=== PATIENT | male | born 1965 | race Caucasian/White ===

== ENCOUNTER → 2017-05-22 | Outpatient (CLI) | payer BC ==
[2017-05-22 12:01] LABS: HEMATOCRIT 45.1 % (42.0-52.0); HEMOGLOBIN 15.4 g/dL (13.5-18.0); MEAN PLATELET VOLUME 10.3 fl (7.4-10.4); RED BLOOD COUNT 5.3 M/mm3 (4.20-5.60); RED CELL DISTRIBUTION WIDTH 13.6 % (11.5-14.5); WHITE BLOOD COUNT 3.5 K/mm3 (4.8-10.8)
[2017-05-22 12:14] LABS: ALBUMIN 4.9 g/dL (3.5-5.0); BUN/CREATININE RATIO 15.5 (6.0-26.0); CALCIUM 9.5 mg/dL (8.4-10.2); POTASSIUM 4.5 mmol/L (3.6-5.0); TOTAL BILIRUBIN 1.2 mg/dL (0.2-1.3); TOTAL PROTEIN 8.9 g/dL (6.3-8.2)
== END ==
LOC: LAB 11:48
PROVIDERS: Family Medicine
DX: K74.4 Secondary biliary cirrhosis (principal); E66.9 Obesity, unspecified; I10 Essential (primary) hypertension

== ENCOUNTER → 2017-08-03 | Outpatient (CLI) | payer BC | LOC: LAB 12:08 | DX: E03.9 Hypothyroidism, unspecified (principal) ==

== ENCOUNTER → 2018-01-21 | Outpatient (CLI) | payer BC | LOC: LAB 16:29 | DX: E03.9 Hypothyroidism, unspecified (principal) ==

== ENCOUNTER → 2018-05-06 | Outpatient (CLI) | payer BC ==
[2018-05-06 11:48] LABS: ALBUMIN 4.6 g/dL (3.5-5.0); CALCIUM 9.3 mg/dL (8.4-10.2); TOTAL BILIRUBIN 1.6 mg/dL (0.2-1.3); TOTAL PROTEIN 8.4 g/dL (6.3-8.2)
[2018-05-06 11:49] LABS: HEMATOCRIT 42.1 % (42.0-52.0); HEMOGLOBIN 14.8 g/dL (13.5-18.0); MEAN CELL VOLUME 83 fl (78-100); MEAN CORPUSCULAR HEMOGLOBIN 29 pg (27-31); MEAN CORPUSCULAR HGB CONC 35 g/dL (33-37); MEAN PLATELET VOLUME 10.9 fl (7.4-10.4); PLATELET COUNT 115 K/mm3 (130-400); RED BLOOD COUNT 5.07 M/mm3 (4.20-5.60); RED CELL DISTRIBUTION WIDTH 13.2 % (11.5-14.5); WHITE BLOOD COUNT 4.1 K/mm3 (4.8-10.8)
[2018-05-06 12:41] LABS: LYMPHOCYTE 35 % (20-51); MONOCYTE 10 % (3-10); NEUTROPHILS 51 % (42-75)
== END ==
LOC: LAB 11:10
PROVIDERS: Family Medicine
DX: Z00.00 Encounter for general adult medical examination without abnormal findings (principal); R10.9 Unspecified abdominal pain; E03.9 Hypothyroidism, unspecified

== ENCOUNTER → 2018-05-13 | Outpatient (CLI) | payer BC | LOC: RAD 09:00 | DX: K74.60 Unspecified cirrhosis of liver (principal); K76.6 Portal hypertension; B19.20 Unspecified viral hepatitis C without hepatic coma; Z90.49 Acquired absence of other specified parts of digestive tract | CPT/HCPCS: Q9967 ==

== ENCOUNTER → 2019-01-10 | Outpatient (CLI) | payer BC ==
[2019-01-10 17:19] LABS: ALBUMIN 4.3 g/dL (3.5-5.0); POTASSIUM 3.8 mmol/L (3.5-5.1)
[2019-01-10 17:20] LABS: CALCIUM 9.4 mg/dL (8.3-10.5)
[2019-01-10 17:21] LABS: TOTAL PROTEIN 8.2 g/dL (6.4-8.3)
[2019-01-10 17:23] LABS: TOTAL BILIRUBIN 0.9 mg/dL (0.2-1.2)
[2019-01-10 17:36] LABS: HEMATOCRIT 49.2 % (42.0-52.0); HEMOGLOBIN 16.3 g/dL (13.5-18.0); MEAN CELL VOLUME 84 fl (78-100); MEAN CORPUSCULAR HEMOGLOBIN 28 pg (27-31); MEAN CORPUSCULAR HGB CONC 33 g/dL (33-37); MEAN PLATELET VOLUME 11.9 fl (7.4-10.4); PLATELET COUNT 110 K/mm3 (130-400); RED BLOOD COUNT 5.87 M/mm3 (4.20-5.60); RED CELL DISTRIBUTION WIDTH 14.3 % (11.5-14.5); WHITE BLOOD COUNT 3.8 K/mm3 (4.8-10.8)
[2019-01-10 19:39] LABS: LYMPHOCYTE 36 % (20-51); MONOCYTE 12 % (3-10); NEUTROPHILS 48 % (42-75)
== END ==
LOC: LAB 16:54
PROVIDERS: Family Medicine
DX: I10 Essential (primary) hypertension (principal); K74.4 Secondary biliary cirrhosis; E03.9 Hypothyroidism, unspecified

== ENCOUNTER → 2019-01-16 | Outpatient (CLI) | payer BC | LOC: RAD 07:00 | DX: K76.6 Portal hypertension (principal); K74.4 Secondary biliary cirrhosis; H53.459 Other localized visual field defect, unspecified eye; Z86.19 Personal history of other infectious and parasitic diseases; Z87.19 Personal history of other diseases of the digestive system; Z90.49 Acquired absence of other specified parts of digestive tract | CPT/HCPCS: Q9967 ==

== ENCOUNTER → 2019-02-19 | Outpatient (CLI) | payer BC ==
[2019-02-19 07:27] LABS: POTASSIUM 3.7 mmol/L (3.5-5.1)
[2019-02-19 07:28] LABS: ALBUMIN 4.1 g/dL (3.5-5.0)
[2019-02-19 07:29] LABS: CALCIUM 9.3 mg/dL (8.3-10.5)
[2019-02-19 07:30] LABS: TOTAL PROTEIN 8.1 g/dL (6.4-8.3)
[2019-02-19 07:35] LABS: DIRECT BILIRUBIN 0.4 mg/dL (0.0-0.5)
[2019-02-19 08:19] LABS: PROTHROMBIN TIME 11.6 SECONDS (9.0-12.0)
== END ==
LOC: LAB 06:51
DX: K83.09 Other cholangitis (principal); B18.2 Chronic viral hepatitis C; Z86.73 Personal history of transient ischemic attack (TIA), and cerebral infarction without residual deficits

== ENCOUNTER → 2020-02-17 | Outpatient (CLI) | payer BC | LOC: LAB 11:26 | DX: R05 Cough (principal); R06.02 Shortness of breath; Z20.828 Contact with and (suspected) exposure to other viral communicable diseases ==

== ENCOUNTER → 2020-04-12 | Outpatient (CLI) | payer BC ==
[2020-04-12 17:50] LABS: HEMATOCRIT 29.8 % (42.0-52.0); HEMOGLOBIN 9.1 g/dL (13.5-18.0); MEAN CELL VOLUME 83 fl (78-100); MEAN CORPUSCULAR HEMOGLOBIN 25 pg (27-31); MEAN CORPUSCULAR HGB CONC 31 g/dL (33-37); PLATELET COUNT 111 K/mm3 (130-400); RED BLOOD COUNT 3.58 M/mm3 (4.20-5.60); RED CELL DISTRIBUTION WIDTH 16.6 % (11.5-14.5); WHITE BLOOD COUNT 2.2 K/mm3 (4.8-10.8)
[2020-04-12 17:57] LABS: POTASSIUM 3.6 mmol/L (3.5-5.1)
[2020-04-12 17:58] LABS: ALBUMIN 3.9 g/dL (3.5-5.0)
[2020-04-12 17:59] LABS: CALCIUM 8.6 mg/dL (8.3-10.5)
[2020-04-12 18:02] LABS: TOTAL BILIRUBIN 0.7 mg/dL (0.2-1.2)
[2020-04-12 18:11] LABS: LYMPHOCYTE 25 % (20-51); NEUTROPHILS 60 % (42-75)
[2020-04-12 18:12] LABS: MONOCYTE 14 % (3-10)
== END ==
LOC: LAB 17:32
PROVIDERS: Family Medicine
DX: I85.10 Secondary esophageal varices without bleeding (principal); E78.5 Hyperlipidemia, unspecified; E03.9 Hypothyroidism, unspecified; D64.9 Anemia, unspecified; R73.9 Hyperglycemia, unspecified

== ENCOUNTER → 2020-07-19 | Outpatient (CLI) | payer BC ==
[2020-07-19 11:14] LABS: ALBUMIN 3.7 g/dL (3.5-5.0); POTASSIUM 3.3 mmol/L (3.5-5.1)
[2020-07-19 11:15] LABS: CALCIUM 8.7 mg/dL (8.3-10.5)
[2020-07-19 11:16] LABS: TOTAL PROTEIN 7.7 g/dL (6.4-8.3)
[2020-07-19 11:36] LABS: EOS # 0.1 (0.04-0.40); EOS % 3.5 % (0.0-4.0); HEMATOCRIT 38.1 % (42.0-52.0); HEMOGLOBIN 12.9 g/dL (13.5-18.0); LYMPH# 1.3 (1.50-4.00); MEAN CELL VOLUME 73 fl (78-100); MEAN CORPUSCULAR HEMOGLOBIN 25 pg (27-31); MEAN CORPUSCULAR HGB CONC 34 g/dL (33-37); MEAN PLATELET VOLUME 11.6 fl (7.4-10.4); MONO # 0.5 (0.20-0.80); NEU # 2.1 (1.40-6.50); PLATELET COUNT 115 K/mm3 (130-400); RED BLOOD COUNT 5.22 M/mm3 (4.20-5.60)
== END ==
LOC: LAB 10:31
PROVIDERS: Family Medicine
DX: I10 Essential (primary) hypertension (principal); E03.9 Hypothyroidism, unspecified; R73.9 Hyperglycemia, unspecified; D64.9 Anemia, unspecified

== ENCOUNTER → 2020-07-20 | Outpatient (CLI) | payer BC | LOC: RAD 08:30 | DX: I85.10 Secondary esophageal varices without bleeding (principal); R16.1 Splenomegaly, not elsewhere classified; K74.60 Unspecified cirrhosis of liver; I87.8 Other specified disorders of veins; Z96.89 Presence of other specified functional implants; Z90.49 Acquired absence of other specified parts of digestive tract | CPT/HCPCS: Q9967 ==

== ENCOUNTER → 2021-02-23 | Outpatient (CLI) | payer BC ==
[2021-02-23 16:33] LABS: BASO # 0.01 K/mm3 (0.02-0.10); EOS # 0.15 K/mm3 (0.04-0.40); EOS % 4.8 % (0.0-4.0); HEMATOCRIT 36.3 % (42.0-52.0); HEMOGLOBIN 12.2 g/dL (13.5-18.0); LYMPH# 1.04 K/mm3 (1.50-4.00); MEAN CELL VOLUME 79 fl (78-100); MEAN CORPUSCULAR HEMOGLOBIN 27 pg (27-31); MEAN CORPUSCULAR HGB CONC 34 g/dL (33-37); MEAN PLATELET VOLUME 9.4 fl (7.4-10.4); NEU # 1.43 K/mm3 (1.40-6.50); PLATELET COUNT 91 K/mm3 (130-400); RED BLOOD COUNT 4.59 M/mm3 (4.20-5.60); RED CELL DISTRIBUTION WIDTH 16.6 % (11.5-14.5); WHITE BLOOD COUNT 3.1 K/mm3 (4.8-10.8)
== END ==
LOC: LAB 16:12
PROVIDERS: Family Medicine
DX: E11.9 Type 2 diabetes mellitus without complications (principal); M25.511 Pain in right shoulder

== ENCOUNTER → 2021-02-25 | Outpatient (CLI) | payer BC | LOC: RAD 12:00 | DX: M77.8 Other enthesopathies, not elsewhere classified (principal) ==

== ENCOUNTER → 2021-05-04 | Outpatient (CLI) | payer BC | LOC: RAD 09:00 | DX: I63.9 Cerebral infarction, unspecified (principal) ==

== ENCOUNTER 2021-09-05 09:26 | Emergency (ER) | payer BC ==
[~2021-09-05] VITALS: Wt 100.3 kg
[2021-09-05] MEDS ORDERED: CHOLESTYRAMINE P4 GM PO (09:45)
[2021-09-05] MEDS ORDERED: TRAMADOL 50 MG TAB PO (10:10)
[2021-09-05] MEDS ORDERED: ZOFRAN ODT4 MG PO (10:10)
[2021-09-05] MEDS ORDERED: PANTOPRAZOLE SO40 MG PO (10:10)
[2021-09-05] MEDS ORDERED: ACTIGALL 300MG300 MG PO (10:10)
[2021-09-05] MEDS ORDERED: ATORVASTATIN CA40 MG PO (10:11)
[2021-09-05] MEDS ORDERED: FUROSEMIDE20 MG PO (10:11)
[2021-09-05] MEDS ORDERED: XIFAXAN550 MG PO (10:11)
[2021-09-05] MEDS ORDERED: METFORMIN HYD1000 MG PO (10:11)
[2021-09-05] MEDS ORDERED: HCTZ 25MG25 MG PO (10:11)
[2021-09-05] MEDS ORDERED: LEVOTHYROXINE0.05 MG PO (10:12)
[2021-09-05] MEDS ORDERED: LOSARTAN POTASS50 M1 PO (10:12)
[2021-09-05 10:18] LABS: POTASSIUM 4.3 mmol/L (3.5-5.1)
[2021-09-05 10:19] LABS: CALCIUM 8.8 mg/dL (8.3-10.5)
[2021-09-05 10:21] LABS: BASO # 0.01 K/mm3 (0.02-0.10); EOS # 0.09 K/mm3 (0.04-0.40); EOS % 3.4 % (0.0-4.0); HEMATOCRIT 36.8 % (42.0-52.0); HEMOGLOBIN 13.1 g/dL (13.5-18.0); LYMPH# 0.77 K/mm3 (1.50-4.00); MEAN CELL VOLUME 86 fl (78-100); MEAN CORPUSCULAR HEMOGLOBIN 31 pg (27-31); MEAN CORPUSCULAR HGB CONC 36 g/dL (33-37); MEAN PLATELET VOLUME 10.4 fl (7.4-10.4); MONO # 0.38 K/mm3 (0.20-0.80); NEU # 1.38 K/mm3 (1.40-6.50); PLATELET COUNT 77 K/mm3 (130-400); RED BLOOD COUNT 4.29 M/mm3 (4.20-5.60); RED CELL DISTRIBUTION WIDTH 14.6 % (11.5-14.5); WHITE BLOOD COUNT 2.6 K/mm3 (4.8-10.8)
[2021-09-05 10:22] LABS: TOTAL BILIRUBIN 2.5 mg/dL (0.2-1.2)
[2021-09-05 10:23] LABS: PROTHROMBIN TIME 12.7 SECONDS (9.0-12.0)
[2021-09-05 11:46] LABS: PH-URINE 7.5 (5.0 - 8.0); URINE APPEARANCE CLEAR; URINE COLOR YELLOW; URINE PROTEIN(semi-quant) NEGATIVE (NEGATIVE)
[2021-09-05 11:47] LABS: URINE BILIRUBIN NEGATIVE (NEGATIVE); URINE BLOOD TRACE (NEGATIVE); URINE KETONE NEGATIVE (NEGATIVE); URINE LEUKOCYTE ESTERASE NEGATIVE (NEGATIVE); URINE NITRATE NEGATIVE (NEGATIVE); URINE UROBILINOGEN NORMAL (NORMAL); URINE WBC 0-1 /hpf (0-3)
[2021-09-05 12:30] VITALS: BP 152/90
== END 2021-09-05 12:30 | disposition short-term general hospital (02) ==
LOC: ED 09:26
PROVIDERS: Nurse Practitioner
DX: I63.9 Cerebral infarction, unspecified (principal); E66.9 Obesity, unspecified; Z20.822 Contact with and (suspected) exposure to COVID-19
CPT/HCPCS: J2405; J7030

== ENCOUNTER → 2021-12-28 | Outpatient (CLI) | payer BC ==
[~2021-12-28] MED LIST: ACTIGALL 300MG300 MG PO; ALDACTONE 25MG25 MG PO; ATORVASTATIN CA40 MG PO; CHOLESTYRAMINE P4 GM PO; FUROSEMIDE20 MG PO; HCTZ 25MG25 MG PO; LEVOTHYROXINE0.05 MG PO; LOSARTAN POTASS50 M1 PO; METFORMIN HYD1000 MG PO; PANTOPRAZOLE SO40 MG PO; ROXICODONE 55 MG/TAB PO; TRAMADOL 50 MG TAB PO; XIFAXAN550 MG PO; ZOFRAN ODT4 MG PO
[2021-12-28 17:00] LABS: BASO # 0.02 K/mm3 (0.02-0.10); EOS # 0.21 K/mm3 (0.04-0.40); EOS % 3.7 % (0.0-4.0); HEMATOCRIT 43.8 % (42.0-52.0); HEMOGLOBIN 16.1 g/dL (13.5-18.0); LYMPH# 1.67 K/mm3 (1.50-4.00); MEAN CELL VOLUME 83 fl (78-100); MEAN CORPUSCULAR HEMOGLOBIN 31 pg (27-31); MEAN CORPUSCULAR HGB CONC 37 g/dL (33-37); MEAN PLATELET VOLUME 9.7 fl (7.4-10.4); MONO # 0.78 K/mm3 (0.20-0.80); NEU # 3.05 K/mm3 (1.40-6.50); PLATELET COUNT 105 K/mm3 (130-400); RED BLOOD COUNT 5.28 M/mm3 (4.20-5.60); RED CELL DISTRIBUTION WIDTH 12.7 % (11.5-14.5); WHITE BLOOD COUNT 5.7 K/mm3 (4.8-10.8)
[2021-12-28 17:12] LABS: ALBUMIN 4.6 g/dL (3.5-5.0)
[2021-12-28 17:13] LABS: POTASSIUM 3.1 mmol/L (3.5-5.1)
[2021-12-28 17:14] LABS: CALCIUM 10.7 mg/dL (8.3-10.5)
[2021-12-28 17:15] LABS: TOTAL PROTEIN 8.8 g/dL (6.4-8.3)
[2021-12-30 00:57] LABS: HEPATITIS C ANTIBODY Reactive (Negative)
== END ==
LOC: LAB 16:50
PROVIDERS: Family Medicine
DX: K74.69 Other cirrhosis of liver (principal); J30.9 Allergic rhinitis, unspecified; I10 Essential (primary) hypertension; E03.9 Hypothyroidism, unspecified; E11.9 Type 2 diabetes mellitus without complications; E66.9 Obesity, unspecified

== ENCOUNTER 2021-12-29 08:16 | Emergency (ER) | payer BC ==
[~2021-12-29 08:16] MED LIST changes: -ALDACTONE 25MG25 MG PO; -ROXICODONE 55 MG/TAB PO
[2021-12-29] MEDS ORDERED: ALDACTONE 25MG25 MG PO (08:39)
[2021-12-29 08:53] LABS: BASO # 0.02 K/mm3 (0.02-0.10); EOS # 0.17 K/mm3 (0.04-0.40); EOS % 3.6 % (0.0-4.0); HEMATOCRIT 40.2 % (42.0-52.0); HEMOGLOBIN 14.9 g/dL (13.5-18.0); MEAN CELL VOLUME 83 fl (78-100); MEAN CORPUSCULAR HEMOGLOBIN 31 pg (27-31); MEAN CORPUSCULAR HGB CONC 37 g/dL (33-37); MEAN PLATELET VOLUME 10.7 fl (7.4-10.4); MONO # 0.66 K/mm3 (0.20-0.80); PLATELET COUNT 101 K/mm3 (130-400); RED BLOOD COUNT 4.83 M/mm3 (4.20-5.60); RED CELL DISTRIBUTION WIDTH 12.4 % (11.5-14.5); WHITE BLOOD COUNT 4.8 K/mm3 (4.8-10.8)
[2021-12-29 08:56] LABS: POTASSIUM 3.7 mmol/L (3.5-5.1)
[2021-12-29 08:59] LABS: TOTAL PROTEIN 7.7 g/dL (6.4-8.3)
[2021-12-29 09:01] LABS: TOTAL BILIRUBIN 5.3 mg/dL (0.2-1.2)
[2021-12-29 09:07] LABS: PARTIAL THROMBOPLASTIN TIME 24.3 SECONDS (21.0-32.0); PROTHROMBIN TIME 12.6 SECONDS (9.0-12.0)
[2021-12-29] MEDS ORDERED: ROXICODONE 55 MG/TAB PO ×3 (11:19→16:43)
[2021-12-29 11:51] VITALS: BP 132/77
== END 2021-12-29 11:51 | disposition home or self-care (01) ==
LOC: ED 08:16
PROVIDERS: Nurse Practitioner
DX: K74.60 Unspecified cirrhosis of liver (principal); E66.9 Obesity, unspecified; Z90.49 Acquired absence of other specified parts of digestive tract; Z20.822 Contact with and (suspected) exposure to COVID-19
CPT/HCPCS: Q9967

== ENCOUNTER → 2022-01-27 | Outpatient (CLI) | payer BC ==
[~2022-01-27] MED LIST changes: +ALDACTONE 25MG25 MG PO; +ROXICODONE 55 MG/TAB PO
== END ==
LOC: LAB 11:49
DX: J30.9 Allergic rhinitis, unspecified (principal); I10 Essential (primary) hypertension; K74.69 Other cirrhosis of liver; E66.9 Obesity, unspecified; D63.8 Anemia in other chronic diseases classified elsewhere; E03.9 Hypothyroidism, unspecified; K83.09 Other cholangitis; E11.9 Type 2 diabetes mellitus without complications; D69.6 Thrombocytopenia, unspecified; R39.12 Poor urinary stream

== ENCOUNTER → 2022-03-17 | Outpatient (CLI) | payer BC ==
[~2022-03-17] MED LIST changes: +JANUVIA 100MG100 MG PO; +LANTUS SOLOS100 U/ML SQ
== END ==
LOC: LAB 11:40
DX: D69.6 Thrombocytopenia, unspecified (principal); J30.9 Allergic rhinitis, unspecified; D63.8 Anemia in other chronic diseases classified elsewhere; I10 Essential (primary) hypertension; N40.1 Benign prostatic hyperplasia with lower urinary tract symptoms; I63.9 Cerebral infarction, unspecified; K74.60 Unspecified cirrhosis of liver; K74.69 Other cirrhosis of liver; E03.9 Hypothyroidism, unspecified; E66.9 Obesity, unspecified; K83.09 Other cholangitis; E11.9 Type 2 diabetes mellitus without complications; L82.0 Inflamed seborrheic keratosis; L57.0 Actinic keratosis

== ENCOUNTER → 2022-07-03 | Outpatient (CLI) | payer BC | LOC: RAD 13:36 | DX: R05.9 Cough, unspecified (principal) ==

== ENCOUNTER → 2023-10-09 | Outpatient (CLI) | payer BC ==
[2023-11-27 11:43] LABS: CREATININE OTHER SOURCE AMS
[2023-11-27 12:31] LABS: BASO # 0.02 K/mm3 (0.02-0.10); EOS # 0.25 K/mm3 (0.04-0.40); EOS % 6.9 % (0.0-4.0); HEMATOCRIT 42.9 % (42.0-52.0); HEMOGLOBIN 15.1 g/dL (13.5-18.0); LYMPH# 1.07 K/mm3 (1.50-4.00); MEAN CELL VOLUME 88 fl (78-100); MEAN CORPUSCULAR HEMOGLOBIN 31 pg (27-31); MEAN CORPUSCULAR HGB CONC 35 g/dL (33-37); MONO # 0.48 K/mm3 (0.20-0.80); NEU # 1.81 K/mm3 (1.40-6.50); PLATELET COUNT 95 K/mm3 (130-400); RED BLOOD COUNT 4.88 M/mm3 (4.20-5.60); RED CELL DISTRIBUTION WIDTH 12.8 % (11.5-14.5); WHITE BLOOD COUNT 3.6 K/mm3 (4.8-10.8)
[2023-11-27 12:42] LABS: ALBUMIN 4.1 g/dL (3.5-5.0); CALCIUM 9.7 mg/dL (8.3-10.5); TOTAL BILIRUBIN 3.1 mg/dL (0.2-1.2); TOTAL PROTEIN 7.1 g/dL (6.4-8.3)
== END ==
LOC: LAB 15:20
PROVIDERS: Family Medicine
DX: E78.5 Hyperlipidemia, unspecified (principal); N40.1 Benign prostatic hyperplasia with lower urinary tract symptoms; E03.9 Hypothyroidism, unspecified; E11.9 Type 2 diabetes mellitus without complications; Z79.4 Long term (current) use of insulin

== ENCOUNTER → 2024-01-22 | Outpatient (CLI) | payer BC | LOC: RAD 11:44 | DX: M19.011 Primary osteoarthritis, right shoulder (principal) ==